=== PATIENT | male | born 1955 | race Caucasian/White ===

== ENCOUNTER 2024-06-05 05:57 | Day surgery (SDC) | payer BC ==
[2024-06-02 08:18] VITALS: BMI 33.0
[2024-06-05] MEDS ORDERED: Sevoflurane 250 ML INH ANEST BOTTLE ONE (06:27)
[2024-06-05] MEDS ORDERED: Lidocaine 4% Topical Sol 50 ML BOT ONE (06:27)
[2024-06-05] MEDS ORDERED: Mupirocin 2% Ointment 22 GM Tube ONE (06:48)
[2024-06-05] MEDS ORDERED: EPINEPHrine 1 MG/ML VIAL ONE ×2 (06:48→07:55)
[2024-06-05] MEDS ORDERED: Lidocaine 1% (PF) 30 ML VIAL ONE (06:48)
[2024-06-05] MEDS ORDERED: CEFAZOLIN 2 GM VIAL ONE (06:48)
[2024-06-05] MEDS ORDERED: Dexmedetomidine 200 MCG/2 ML VIAL ONE (07:26)
[2024-06-05] MEDS ORDERED: Lidocaine 1% PF 5 ML VIAL ONE (07:26)
[2024-06-05] MEDS ORDERED: Rocuronium Bromide 10 MG/ML (10ML VIAL) ONE (07:26)
[2024-06-05] MEDS ORDERED: Ondansetron PF 4 MG/2 ML Vial ONE ×2 (07:26→07:29)
[2024-06-05] MEDS ORDERED: SUGAMMADEX SODIUM 200 MG/2 ML VIAL ONE (07:26)
[2024-06-05] MEDS ORDERED: Dexamethasone 20 MG/5 ML VIAL ONE (07:26)
[2024-06-05] MEDS ORDERED: PROPOFOL 40 ML ONE (07:27)
[2024-06-05] MEDS ORDERED: Midazolam HCl 2 mg/2 ml Vial ONE (07:27)
[2024-06-05] MEDS ORDERED: Fentanyl 250 MCG/5 ML VIAL ONE (07:27)
[2024-06-05] MEDS ORDERED: ePHEDrine Sulfate 50 MG/10 ML VIAL ONE (08:00)
[2024-06-05] MEDS ORDERED: Glycopyrrolate 0.2 MG/ML 5 ML SYRINGE ONE (08:01)
[2024-06-05] MEDS ORDERED: Vasopressin 20 UNITS/ML VIAL ONE (08:09)
[2024-06-05] MEDS ORDERED: oFLOXacin 0.3% Opth 5 ML BOT ONE (08:34)
[2024-06-05] MEDS ORDERED: PHENYLEPHRINE-NS 100 MCG/ML 10 ML SYRINGE ONE (08:58)
[2024-06-05] MEDS ORDERED: Ipratropium/Albuterol 3 ML NEB ONE (11:01)
[2024-06-05] MEDS ORDERED: HYDROcodone/Acetaminophen 5/325 mg Tablet ONE (11:52)
== END 2024-06-05 12:15 | disposition home or self-care (01) ==
LOC: CSHSDC 05:57
PROVIDERS: ATTEND Otolaryngology Plastic Surgery within the Head & Neck
PROC: 09U Ear, Nose, Sinus, Supplement (ICD-10-PCS; principal; 2024-06-05)
PROC: 09Q80ZZ Repair Left Tympanic Membrane, Open Approach (ICD-10-PCS; principal; 2024-06-05)
DX: H90.42 Sensorineural hearing loss, unilateral, left ear, with unrestricted hearing on the contralateral side (principal); H72.92 Unspecified perforation of tympanic membrane, left ear; H61.22 Impacted cerumen, left ear; H65.02 Acute serous otitis media, left ear; H65.22 Chronic serous otitis media, left ear; H69.83 Other specified disorders of Eustachian tube, bilateral
CPT/HCPCS: 70250; C1713; C1781; J0171; J1100; J2250; J2405; J2704; J3010; J7620; L8614; Q9968